=== PATIENT | male | born 1965 | race Caucasian/White ===

== ENCOUNTER 2016-06-17 12:15 | Emergency (ER) | payer OTHER | END 2016-06-17 15:50 | disposition home or self-care (01) | LOC: ER 12:15 | DX: L03.115 Cellulitis of right lower limb (principal); M10.072 Idiopathic gout, left ankle and foot; I13.0 Hypertensive heart and chronic kidney disease with heart failure and stage 1 through stage 4 chronic kidney disease, or unspecified chronic kidney disease; N18.9 Chronic kidney disease, unspecified; I50.9 Heart failure, unspecified; Z79.899 Other long term (current) drug therapy | CPT/HCPCS: 36415; 80053; 84550; 85025; 85652; 86141 ==

== ENCOUNTER 2016-07-10 09:54 | Emergency (ER) | payer OTHER | END 2016-07-10 11:16 | disposition home or self-care (01) | LOC: ER 10:11 | DX: M10.9 Gout, unspecified (principal); I13.0 Hypertensive heart and chronic kidney disease with heart failure and stage 1 through stage 4 chronic kidney disease, or unspecified chronic kidney disease; N18.9 Chronic kidney disease, unspecified; I50.9 Heart failure, unspecified; Z79.899 Other long term (current) drug therapy; F17.290 Nicotine dependence, other tobacco product, uncomplicated | CPT/HCPCS: 80047; 85014 ==